=== PATIENT | male | born 1945 | race Caucasian/White ===

== ENCOUNTER 2017-12-15 10:09 | Day surgery (SDC) | payer MEDICARE, OTHER ==
[~2017-12-15] VITALS: Ht 170.2 cm; Wt 96.8 kg
[~2017-12-15 10:09] MED LIST: BENAML20/5 PO; DUTA.5; TAMS.4ER PO
== END 2017-12-15 13:16 | disposition home or self-care (01) ==
LOC: ORSCSDS 10:09
PROVIDERS: Student in an Organized Health Care Education/Training Program
PROC: 0DJD8ZZ Inspection of Lower Intestinal Tract, Via Natural or Artificial Opening Endoscopic (ICD-10-PCS; principal; 2017-12-15 11:30)
DX: Z12.11 Encounter for screening for malignant neoplasm of colon (principal); K64.8 Other hemorrhoids; K57.30 Diverticulosis of large intestine without perforation or abscess without bleeding; Z86.010 Personal history of colon polyps; I10 Essential (primary) hypertension; G47.33 Obstructive sleep apnea (adult) (pediatric); N40.0 Benign prostatic hyperplasia without lower urinary tract symptoms; Z79.899 Other long term (current) drug therapy

== ENCOUNTER → 2018-06-03 | Outpatient (CLI) | payer MEDICARE, OTHER | END | disposition home or self-care (01) | LOC: LAB EV 14:14 → LAB SHORT 14:14 | DX: L03.211 Cellulitis of face (principal) | CPT/HCPCS: 87070; 87077; 87186 ==

== ENCOUNTER 2020-06-12 09:26 | Day surgery (SDC) | payer OTHER ==
[~2020-06-12] VITALS: Ht 172.7 cm; Wt 107.3 kg
[~2020-06-12 09:26] MED LIST changes: +AMLODIPINE-BEN1 EAC2 PO; +Aspirin EC81 MG PO; +DICL75ER PO; +DUTA.5 PO; +HYDCHL25 PO; +LOSARTAN POTAS100 M1 PO
[2020-06-12] MEDS ORDERED: OLMESARTAN-HCT1 EAC5 (09:47)
--- NOTE | 2020-06-12 10:47 | NUR ---
06/12/20 1047 Daja Arias PT. TO BR BEFORE GOING INTO ENDO ROOM. PT. AMB. TO ENDO ROOM 1.
== END 2020-06-12 12:13 | disposition home or self-care (01) ==
LOC: ORSCSDS 09:26
PROVIDERS: Student in an Organized Health Care Education/Training Program
PROC: 0DBM8ZX Excision of Descending Colon, Via Natural or Artificial Opening Endoscopic, Diagnostic (ICD-10-PCS; principal; 2020-06-12 10:45)
PROC: 0DBL8ZX Excision of Transverse Colon, Via Natural or Artificial Opening Endoscopic, Diagnostic (ICD-10-PCS; principal; 2020-06-12 10:45)
DX: Z12.11 Encounter for screening for malignant neoplasm of colon (principal); Z86.010 Personal history of colon polyps; D12.3 Benign neoplasm of transverse colon; D12.4 Benign neoplasm of descending colon; K57.30 Diverticulosis of large intestine without perforation or abscess without bleeding; K64.8 Other hemorrhoids; I10 Essential (primary) hypertension; G47.33 Obstructive sleep apnea (adult) (pediatric); Z79.899 Other long term (current) drug therapy; E66.9 Obesity, unspecified; Z68.35 Body mass index [BMI] 35.0-35.9, adult; Z79.82 Long term (current) use of aspirin
CPT/HCPCS: 88305; J2704; J7120

== ENCOUNTER 2022-03-06 15:31 | Emergency (ER) | payer OTHER ==
[~2022-03-06] VITALS: Ht 175.3 cm; Wt 117.9 kg
[~2022-03-06 15:31] MED LIST changes: +OLMESARTAN-HCT1 EAC5
[2022-03-06 16:31] LABS: BASOPHILS ABSOLUTE AUTO 0.04 K/mm3 (0.00-0.23); BASOPHILS PERCENT AUTO 0 % (0-2); EOSINOPHILS ABSOLUTE AUTO 0.02 K/mm3 (0.00-0.68); EOSINOPHILS PERCENT AUTO 0 % (0-6); Hematocrit 31.8 % (37.0-53.0); Hemoglobin 11.1 g/dL (13.5-17.5); IMMATURE GRAN ABSOLUTE AUTO 0.08 K/mm3 (0.00-0.10); IMMATURE GRAN PERCENT AUTO 1 % (0-1); LYMPHOCYTES PERCENT AUTO 7 % (21-46); MONOCYTES ABSOLUTE AUTO 1.35 K/mm3 (0.16-1.47); MONOCYTES PERCENT AUTO 11 % (4-13); Mean Corpuscular HGB Conc 34.9 g/dL (31.5-36.5); Mean Corpuscular Volume 89 fL (80-100); Mean Platelet Volume 8.6 fL (9.1-12.4); NEUTROPHILS PERCENT AUTO 81 % (41-73); Platelet Count 259 K/mm3 (150-400); RDW Coefficient Variation 12.7 % (11.7-14.2); RDW Standard Deviation 41.8 fL (35.1-46.3); Red Blood Cell Count 3.58 M/mm3 (4.30-5.90); White Blood Cell Count 12.29 K/mm3 (4.00-11.30)
[2022-03-06 16:44] LABS: Albumin/Globulin Ratio 0.8 (0.8-1.8); Bilirubin, Total 0.4 mg/dL (0.1-1.0); Bun/Creatinine Ratio 18.7 (12.0-20.0); Creatinine, Blood 2.09 mg/dL (0.60-1.20); Potassium, Blood 3.5 mmol/L (3.5-5.5)
[2022-03-06 18:06] LABS: Source, Urine Clean Catch
[2022-03-06 18:09] LABS: Appearance, Urine Hazy (Clear); Bilirubin, Urine Neg (Neg); Blood, Urine 3+ (Neg); Color, Urine Yellow (P-Yellow); Glucose Qualitative, Urine Neg (Neg); Ketones, Urine Neg (Neg); Leukocyte Esterase, Urine Neg (Neg); Nitrite, Urine Neg (Neg); Protein, Urine 2+ (Neg); Specific Gravity, Urine 1.025 (1.003-1.022); Urobilinogen, Urine NORM (Normal)
[2022-03-06 18:20] LABS: Hyaline Casts 25-50 /lpf (0-2)
[2022-03-06 18:21] LABS: Bacteria Mod /hpf; Red Blood Cells, Urine 0-2 /hpf (0-2); Squamous Epithelial Cells Few /hpf (Few)
[2022-03-06 18:22] LABS: Amorphous Light (0-Heavy); Renal Epithelial Few /hpf (0-Rare); Transitional Epithelial Cells Rare /hpf (0-Rare)
[2022-03-06 18:44] LABS: Influenza A, PCR NEGATIVE (NEGATIVE); Influenza B, PCR NEGATIVE (NEGATIVE); Resp Syncytial Virus, PCR NEGATIVE (NEGATIVE); SARS-Cov-2 (COVID-19) PCR, MMC NEGATIVE (NEGATIVE)
== END 2022-03-06 20:25 | disposition home or self-care (01) ==
LOC: ER 15:31
PROVIDERS: Physician Assistant
DX: R41.0 Disorientation, unspecified (principal); E86.0 Dehydration; Z79.899 Other long term (current) drug therapy; Z79.82 Long term (current) use of aspirin; Z88.5 Allergy status to narcotic agent; Z20.822 Contact with and (suspected) exposure to COVID-19
CPT/HCPCS: 0241U; 36415; 51798; 71046; 80053; 81001; 83605; 85025; 93005; 93010; A9270; J1885; J7120

== ENCOUNTER → 2022-12-01 | Outpatient (CLI) | payer OTHER | END | disposition home or self-care (01) | LOC: LAB 11:00 → LAB SHORT 11:00 | DX: J06.9 Acute upper respiratory infection, unspecified (principal) | CPT/HCPCS: 87070; 87205 ==